=== PATIENT | male | born 1940 | race Caucasian/White ===

== ENCOUNTER 2024-04-03 13:15 | Emergency (ER) | payer BC ==
[~2024-04-03] VITALS: Ht 167.6 cm; Wt 79.4 kg
[2024-04-03] MEDS ORDERED: TDAP DIPH,PERTUSS,TET VAC/PF 0.5 ML DISP.SYRIN IM ONE (14:57)
[2024-04-03] MEDS: TDAP DIPH,PERTUSS,TET VAC/PF 0.5 ML DISP.SYRIN IM ONE (15:11)
[2024-04-03 15:29] VITALS: BP 145/74; TEMP 98.8; O2SAT 98
== END 2024-04-03 15:33 | disposition home or self-care (01) ==
LOC: ER 13:15
DX: S05.42XA Penetrating wound of orbit with or without foreign body, left eye, initial encounter (principal); R51.9 Headache, unspecified; W01.0XXA Fall on same level from slipping, tripping and stumbling without subsequent striking against object, initial encounter; Y93.89 Activity, other specified; Y92.89 Other specified places as the place of occurrence of the external cause; Y99.8 Other external cause status
CPT/HCPCS: 70450; 90715; A4606; A4663